=== PATIENT | female | born 1985 | race Caucasian/White ===

== ENCOUNTER 2016-08-24 22:45 | Inpatient (IN) | payer OTHER ==
--- OUTSIDE RECORDS SUMMARY | 2016-08-24 22:50 | XMS REPORT | Continuity of Care Document ---
:1985 Author Organization [facility] ([facility]) [place] [address] Phone [phone] Care Team Providers Name Role Phone Unavailable Primary Care Provider Unavailable Source Comments This disclosure is being made pursuant to the Care Everywhere program, applicable federal and state laws, and may not contain all informaitonavailable regarding this patient.[facility] ([facility]) Active Allergies and Adverse Reactions Not on File Current Medications Not on file Active Problems Not on file Social History Tobacco Use Types Packs/Day Years Used Date Never Assessed Plan of Care Health Maintenance Due Date Last Done Comments Hepatitis B Vaccine (1 of 3 - Primary Series) 1984 Tdap Vaccine 1995 Lipid Disorder Screening 2002 MMR Vaccine 2002 Td Vaccine 2002 Varicella Vaccine (1 of 2 - Adult - No Evidence of 2002 Immunity) Cervical Cancer Screening 2014 Influenza Vaccine: Seasonal (#1) 11/29/2015 Results from Last 3 Months Not on file
--- OUTSIDE RECORDS SUMMARY | 2016-08-24 23:02 | XMS REPORT | Continuity of Care Document ---
:1985 Author Organization [facility] ([facility]) [place] [address] Phone [phone] Care Team Providers Name Role Phone Unavailable Primary Care Provider Unavailable Source Comments This disclosure is being made pursuant to the Care Everywhere program, applicable federal and state laws, and may not contain all informaitonavailable regarding this patient.[facility] ([facility]) Active Allergies and Adverse Reactions Not on [...]
[2016-08-24] MEDS ORDERED: DEXTROSE 5%-LACTATED RINGERS 1,000 ML IV PRN (23:14)
[2016-08-24] MEDS ORDERED: RINGERS SOLUTION,LACTATED 1,000 ML IV ONE (23:14)
[2016-08-24] MEDS ORDERED: OXYTOCIN/DEXTROSE 5%-WATER 30 UNITS/500 ML BAG IV ONE (23:14)
[2016-08-24] MEDS ORDERED: LIDOCAINE HCL 50 ML VIAL PERI PRN (23:14)
[2016-08-25] MEDS ORDERED: BUPIVACAINE HCL/0.9 % NACL/PF 250 ML EP PRN (00:49)
[2016-08-25] MEDS ORDERED: ONDANSETRON HCL/PF 2 MG/ML VIAL IV PRN (00:49)
[2016-08-25] MEDS ORDERED: NALOXONE HCL 1 MG/1 ML SYRG IV PRN (00:49)
--- NOTE | 2016-08-25 01:21 | OR ---
Anesthesia Procedure Note - Anesthesia Procedure Note Date of Service: 08/25/16 Narrative: Vital Signs - Last Taken Temp 36.6 C 11/29/14 08:35 Pulse 85 08/25/16 00:54 Resp 18 08/25/16 00:54 BP 134/80 08/25/16 00:54 Pulse Ox 97 08/25/16 00:54 08/25/16 01:20 ANESTHESIA PROCEDURE NOTE Date of Procedure: 08/17/2016. Time of procedure: 49. Performed by: Joseluis Alexis CRNA Commercial Real Estate Attorney: None. Preprocedure diagnosis: Active labor. Post procedure diagnosis: Same. Procedure: Insertion of labor epidural. Indications: The patient is a 31 -year-old female in active labor requesting labor epidural for pain management. Findings: See below. Details of the procedure: The patient was placed in a sitting position. DuraPrep as well as Betadine swabs 3 was applied to the patient's back. Patient was then draped in a sterile fashion. Lidocaine 1% was infiltrated to the skin and subcutaneous tissues at the level of the L3 4 interspace. The epidural space was identified using a 18-gauge Tuohy needle with loss-of- resistance technique. Epidural catheter was inserted to a depth of 11 centimeters at skin. Negative test dose was elicited using 3 mL of 1.5% preservative-free lidocaine plus epinephrine 1 200,000. The epidural catheter was then taped and secured in place. EBL: Minimal. Fluids: N/A. Specimen: N/A. Post procedure condition: The patient tolerated the procedure well. No complications were noted. Thank you for this consultation. Joseluis Alexis CRNA
--- NOTE | 2016-08-25 07:51 | OR ---
Operative Report - Dictated Report Narrative: Spontaneous vaginal delivery of viable female at 0725 on 08/25/2016 in [place] position with Apgars 8 and 9, weighing 2928 g. [Cord clamping delayed approximately 1 minute] Placenta delivered [complete, intact, with three vessel cord] Estimated blood loss: [less than 50 ml] Lacerations: 3 cm second degree vaginal laceration repaired with 3-0 Vicryl Rapide History for MU Definition: * The number of deliveries resulting in a live the patient experienced prior to current hospitalization * The previous delivery of live twins or any live multiple gestation is considered one live event. *If primagravida or nulliparous is documented select zero for the number of previous live births. Live Events: 0
[2016-08-25] MEDS ORDERED: SENNOSIDES 8.6 MG TABLET PO PRN (07:52)
[2016-08-25] MEDS ORDERED: OXYTOCIN/DEXTROSE 5%-WATER 30 UNITS/500 ML BAG IV ONE (07:52)
[2016-08-25] MEDS ORDERED: ACETAMINOPHEN 500 MG TABLET PO PRN (07:52)
[2016-08-25] MEDS ORDERED: oxyCODONE HCL/ACETAMINOPHEN 1 TAB TABLET PO PRN (07:52)
[2016-08-25] MEDS ORDERED: CALCIUM CARBONATE 500 MG TAB.CHEW PO PRN (07:52)
[2016-08-25] MEDS ORDERED: BISACODYL 10 MG SUPP.RECT RC PRN (07:52)
[2016-08-25] MEDS ORDERED: BENZOCAINE/MENTHOL 81 SPRAY CAN TP PRN (07:52)
[2016-08-25] MEDS ORDERED: GLYCERIN/WITCH HAZEL LEAF 40 APPL BOX TP PRN (07:52)
[2016-08-25] MEDS ORDERED: HYDROCORTISONE 30 APPL TUBE TP PRN (07:52)
[2016-08-25] MEDS: IBUPROFEN 800 MG TABLET PO PRN ×3 (08:36→20:47)
[2016-08-25] MEDS: DOCUSATE SODIUM 100 MG CAPSULE PO SCH ×2 (09:03→20:47)
[2016-08-25] MEDS: CALCIUM CARBONATE/VITAMIN D3 1 TAB TABLET PO SCH (09:03)
[2016-08-25] MEDS: FERROUS SULFATE 325 MG TABLET PO SCH (09:04)
[2016-08-25] MEDS: PRENATAL VIT#96/FERROUS FUM/FA 1 TAB TABLET PO SCH (09:04)
[2016-08-26] MEDS: oxyCODONE HCL/ACETAMINOPHEN 1 TAB TABLET PO PRN ×3 (00:21→21:46)
[2016-08-26] MEDS: CALCIUM CARBONATE/VITAMIN D3 1 TAB TABLET PO SCH (10:39)
[2016-08-26] MEDS: FERROUS SULFATE 325 MG TABLET PO SCH (10:39)
[2016-08-26] MEDS: DOCUSATE SODIUM 100 MG CAPSULE PO SCH ×2 (10:39→21:47)
[2016-08-26] MEDS: PRENATAL VIT#96/FERROUS FUM/FA 1 TAB TABLET PO SCH (10:39)
--- NOTE | 2016-08-26 11:06 | PN ---
Subjective - Date and Time Seen Date: 08/26/16 Time: 11:05 Objective - Vitals Vitals: Last Vital Signs Temp 36.0 C L 08/26/16 07:21 Pulse 76 08/26/16 07:21 Resp 18 08/26/16 07:21 BP 135/76 08/26/16 07:21 Pulse Ox 99 08/26/16 08:04 Patient denies complaints. Lochia wnl Abdomen - soft, nontender Uterus - firm, at umbilicus - 1 No calf tenderness Impression: day #1 - s/p spontaneous vaginal delivery. Plan: Continue routine care Cauti Physician Documentation - Urinary Catheter Management Urethral (Paulino) Date of Insertion: 08/25/16 Time of Insertion: 04:00
[2016-08-26] MEDS: IBUPROFEN 800 MG TABLET PO PRN (18:04)
[2016-08-27 06:51] VITALS: BP 127/72
--- NOTE | 2016-08-27 08:39 | PN ---
Subjective - Date and Time Seen Date: 08/27/16 Time: 08:38 Objective - Vitals Vitals: Last Vital Signs Temp 36.8 C 08/27/16 06:48 Pulse 70 08/27/16 06:48 Resp 18 08/27/16 06:48 BP 127/72 08/27/16 06:48 Pulse Ox 98 08/27/16 06:48 Patient denies complaints. Lochia wnl Abdomen - soft, nontender Uterus - firm, at umbilicus - 2 No calf tenderness Impression: day #2 - s/p spontaneous vaginal delivery. Plan: Routine discharge instructions Cauti Physician Documentation - Urinary Catheter Management Urethral (Paulino) Date of Insertion: 08/25/16 Time of Insertion: 04:00
[2016-08-27] MEDS: IBUPROFEN 800 MG TABLET PO PRN (15:31)
[2016-08-27] MEDS: oxyCODONE HCL/ACETAMINOPHEN 1 TAB TABLET PO PRN (15:31)
== END 2016-08-27 15:45 | disposition home or self-care (01) | DRG 775 ==
LOC: OBCLINIC 22:45 → OB 22:58
PROVIDERS: ADMIT Obstetrics & Gynecology; ATTEND Obstetrics & Gynecology
PROC: 10E0XZZ Delivery of Products of Conception, External Approach (ICD-10-PCS; principal; 2016-08-25)
PROC: 0KQM0ZZ Repair Perineum Muscle, Open Approach (ICD-10-PCS; 2016-08-25)
PROC: 4A1HXCZ Monitoring of Products of Conception, Cardiac Rate, External Approach (ICD-10-PCS; 2016-08-25)
PROC: 3E0S3CZ (ICD-10-PCS; 2016-08-25)
DX: O99.02 Anemia complicating childbirth (principal); D64.9 Anemia, unspecified; O70.1 Second degree perineal laceration during delivery; O69.81X0 Labor and delivery complicated by cord around neck, without compression, not applicable or unspecified; O99.214 Obesity complicating childbirth; E66.01 Morbid (severe) obesity due to excess calories; Z68.38 Body mass index [BMI] 38.0-38.9, adult; Z3A.38 38 weeks gestation of pregnancy; Z37.0 Single live birth

== ENCOUNTER 2020-06-03 00:01 | Inpatient (IN) ==
[2020-06-03] MEDS ORDERED: OXYTOCIN/0.9 % SODIUM CHLORIDE 30 UNITS/500 ML BAG IV ONE (18:01)
[2020-06-03] MEDS ORDERED: MISOPROSTOL 100 MCG TABLET VG PRN (18:01)
[2020-06-03] MEDS ORDERED: RINGER'S SOLUTION,LACTATED 1,000 ML IV ONE (18:01)
[2020-06-03] MEDS ORDERED: DEXTROSE 5%-LACTATED RINGERS 1,000 ML IV PRN (18:01)
[2020-06-03] MEDS ORDERED: ONDANSETRON 4 MG TAB.RAPDIS PO PRN (18:01)
--- NOTE | 2020-06-03 19:43 | HP ---
Chief Complaint - Chief Complaint Date of Service: 06/03/20 Time of Service: 19:33 Chief Complaint: Induction of labor for CHTN History of Present Illness: 35 yo at 39w0d admitted for induction of labor due to CHTN. This complicated by anemia, AMA, anxiety/depression, CHTN, and morbid obesity. 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) Major depressive disorder (Chronic) Generalized anxiety disorder (Chronic) Anxiety Onset Date: ~2018 Depression Onset Date: ~2018 Allergic rhinitis (Resolved) Bronchitis (Resolved) Screening for depression (Resolved) PHQ 9: 11 OLIVIA 7: 13 Sinusitis, acute (Resolved) Tension headache (Resolved) Low back pain Onset Date: 10/30/13 Missed Onset Date: 10/21/15 Surgical History: Surgical History (Last Reviewed 06/03/20 @ 19:36 by Devan Allen DO) History of liver biopsy Onset Date: 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 Rivers left small finger Family History: Family History (Last Reviewed 06/03/20 @ 19:36 by Devan Allen DO) Mother Alive and well Father Hypertension Grandmother Diabetes CVA (cerebral vascular accident) Social History: (Last Reviewed 06/03/20 @ 19:36 by Devan Allen DO) Social History: adopted: No foster care: No snf: No Marital status: Single lives independently: Yes household members: children number of children: 1 caregiver/support person: No current occupational status: employed Highest level of school completed/degree received: Associate degree: occupat Sexually Active: No Service: No Tobacco: Smoking Status: Never smoker passive smoking exposure: No second hand exposure: No Alcohol: alcohol intake: current alcohol intake frequency: holiday/special occasion details: none with Substance Use: substance use type: does not use Dietary Habits: caffeine: Yes caffeine comment: 1/day Type: coffee Exercise: Physical activity type: none Review Of Systems (GEN) - Review of Systems Generalized/Overall Review: Present: No Symptoms Reported EENTM: Present: No Symptoms Reported Respiratory: Present: No Symptoms Reported Cardiac: Present: No Symptoms Reported Abdominal: Present: No Symptoms Reported Genitourinary: Present: No Symptoms Reported Musculoskeletal: Present: No Symptoms Reported Neurological: Present: No Symptoms Reported Skin: Present: No Symptoms Reported Endocrine: Present: No Symptoms Reported Immunizations: IMMUNIZATION HX Immunizations Up to Date Yes History of Influenza Vaccine Yes Hx Pneumococcal Vaccination No Allergies/Adverse Reactions: Allergies Allergy/AdvReac Type Severity Reaction Status Date / Time No Known Allergies Allergy Verified 06/03/20 18:15 Home Medications: HOME MEDICATIONS ascorbic acid (vitamin C) 500 mg capsule 1,000 mg PO DAILY 10/29/19 [Last Taken 06/03/20 08:00] fluoxetine 20 mg capsule 20 mg PO DAILY #30 cap 11/03/19 [Last Taken 06/03/20 08:00] aspirin 81 mg tablet,delayed release 81 mg PO DAILY 02/26/20 [Last Taken 06/03/20 08:00] magnesium oxide 800 mg PO DAILY 02/26/20 [Last Taken Unknown] ferrous sulfate 325 mg (65 mg iron) tablet 325 mg PO BID tab 03/16/20 [Last Taken 06/03/20 08:00] labetalol 100 mg tablet 25 mg PO BID tab 04/15/20 [Last Taken 06/03/20 08:00] Vits96/Iron Fum/Folic [ S] 1 tab PO DAILY 05/24/20 [Last Taken 06/03/20 08:00] Exam - Exam Vital Signs: Vital Signs - Last Taken Temp 36.7 C 06/03/20 19:12 Pulse 77 06/03/20 19:12 Resp 20 06/03/20 19:12 BP 121/61 06/03/20 19:12 Pulse Ox 97 06/03/20 19:12 Constitutional: Present: Alert, Oriented x3, Cooperative ENT Exam: Present: hearing grossly normal Neck: Present: non-tender, supple. Absent: thyromegaly Back Exam: Present: no CVA tenderness Breasts: Present: Exam deferred Respiratory: Present: lungs clear, no respiratory distress Cardiovascular/Chest: Present: normal peripheral pulses, regular rate, rhythm Abdomen: Present: soft, nontender, no rebound tenderness, other - Gravid /Rectal: Present: Other - Cervix - 05/24/- Extremity: Present: no pedal edema, no calf tenderness Skin Exam: Present: normal color, warm/dry, no cyanosis Lymphatic: Present: no adenopathy Neurologic: Present: alert, normal mood/affect, oriented x 3 Appearance: Present: appropriate appearance, appropriate insight Eye contact: Present: cooperative, good eye contact Thoughts: Present: normal thought pattern, normal mood /affect Assessment/Plan - Assessment/Plan (1) Hypertension Assessment: Admit for Cytotec induction of labor. Epidural and pitocin PRN. Problem: Chronic Qualifiers: Hypertension type: essential hypertension (2) Advanced maternal age affecting , antepartum Problem: Chronic (3) Major depressive disorder Problem: Chronic Qualifiers: Major depression recurrence: recurrent Active/Remission status: in remission of unspecified degree Qualified Code(s): F33.40 - Major depressive disorder, recurrent, in remission, unspecified (4) Generalized anxiety disorder Problem: Chronic (5) BMI 37.0-37.9, adult Problem: Chronic
[2020-06-03] MEDS ORDERED: LABETALOL HCL 100 MG TABLET PO SCH (21:00)
[2020-06-04] MEDS ORDERED: NALOXONE HCL 1 MG/1 ML SYRG IV PRN (02:33)
[2020-06-04] MEDS ORDERED: ONDANSETRON HCL/PF 2 MG/ML VIAL IV PRN (02:33)
[2020-06-04] MEDS ORDERED: BUPIVACAINE HCL/0.9 % NACL/PF 250 ML EP PRN (02:33)
[2020-06-04] MEDS ORDERED: fentaNYL CITRATE/PF 50 MCG/ML AMPUL IT SCH (02:45)
--- NOTE | 2020-06-04 03:09 | ANES ---
Anesthesia Pre Procedure Eval Vitals/Labs: Last Vital Signs Temp 36.6 C 06/04/20 02:32 Pulse 71 06/04/20 02:32 Resp 22 H 06/04/20 02:32 BP 127/63 06/04/20 02:32 Pulse Ox 98 06/04/20 02:32 HOME MEDICATIONS ascorbic acid (vitamin C) 500 mg capsule 1,000 mg PO DAILY 10/29/19 [Last Taken 06/03/20 08:00] fluoxetine 20 mg capsule 20 mg PO DAILY #30 cap 11/03/19 [Last Taken 06/03/20 08:00] aspirin 81 mg tablet,delayed release 81 mg PO DAILY 02/26/20 [Last Taken 06/03/20 08:00] magnesium oxide 800 mg PO DAILY 02/26/20 [Last Taken Unknown] ferrous sulfate 325 mg (65 mg iron) tablet 325 mg PO BID tab 03/16/20 [Last Taken 06/03/20 08:00] labetalol 100 mg tablet 25 mg PO BID tab 04/15/20 [Last Taken 06/03/20 08:00] Vits96/Iron Fum/Folic [ S] 1 tab PO DAILY 05/24/20 [Last Taken 06/03/20 08:00] Allergies/Adverse Reactions: Allergies Allergy/AdvReac Type Severity Reaction Status Date / Time No Known Allergies Allergy Verified 06/03/20 18:15 - Planned Procedure Planned Procedure: Medical Induction Medication List Reviewed:: Yes Allergies Verified: Yes Medical History (Last Reviewed 06/04/20 @ 03:07 by Bg Perez CRNA) Anemia (Chronic) Onset Date: 06/19/16 03/16/20 BMI 37.0-37.9, adult (Chronic) Advanced maternal age affecting , antepartum (Chronic) Hypertension (Chronic) 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) Major depressive disorder (Chronic) Generalized anxiety disorder (Chronic) Anxiety Onset Date: ~2018 Depression Onset Date: ~2018 Allergic rhinitis (Resolved) Bronchitis (Resolved) Screening for depression (Resolved) PHQ 9: 11 OLIVIA 7: 13 Sinusitis, acute (Resolved) Tension headache (Resolved) Low back pain Onset Date: 10/30/13 Missed Onset Date: 10/21/15 Surgical History (Last Reviewed 06/04/20 @ 03:07 by Bg Perez CRNA) History of liver biopsy Onset Date: 07/03/17 Sonja- Hyalinized caseasting granuloma H/O adenoidectomy Onset Date: 1993 History of tonsillectomy Onset Date: 1993 Hx laparoscopic cholecystectomy Onset Date: 07/03/17 finger surgery Onset Date: 12/22/02 Dr. Rivers left small finger Family History (Last Reviewed 06/04/20 @ 03:07 by Bg Perez CRNA) Mother Alive and well Father Hypertension Grandmother Diabetes CVA (cerebral vascular accident) - Family Anesthesia History Family History:: no untoward family reactions to anesthesia, no familial bleeding tendencies, no family history of clotting disorders, no family history of premature - Airway/Neck/Teeth Within Normal Limits:: Yes Teeth Condition: intact Neck Exam: full range of motion Mallampatti Score: 2 Thyromental (T-M) distance: > 6 cm Mandibulo Hyoid distance: > 3 cm - Respiratory Respiratory Physical: lungs clear Smoking Status: Never smoker Sleep Apnea currently treated: No Sleep Apnea by current assessment: No - Cardiovascular Cardiac History: hypertension Tolerate Activity: Fair Heart Sounds: S1 & S2, Regular - Gastrointestinal NPO since: 2399 - Anesthesia Assessment and Plan ASA Class: PS, II, E Anesthesia Type Plan: Epidural - CSE for labor analgesia
--- NOTE | 2020-06-04 03:33 | ANES ---
Post Anesthesia Discharge - Transfer of Care Transfer of Care handoff given to nurse: Yes - Discharge from PACU Discharge from PACU when meets criteria: Yes - Comfortable post CSE.
--- NOTE | 2020-06-04 03:34 | ANES ---
Anesthesia Procedure Note Procedure Note: ANESTHESIA PROCEDURE NOTE Date of Procedure: 06/04/2020 Time of procedure: 3:10 AM. Performed by: THIERRY Sol CRNA, MSN Tire Repairman: Mauricio Ortiz RN. Preprocedure diagnosis: Active labor, labor pain. Post procedure diagnosis: Same. Procedure:Epidural for labor analgesia L3-4. Indications: Labor pain. Findings: See below. Details of the procedure: The patient was placed on the side of the bed in sitting positionand prepped with DuraPrep then draped in a sterile fashion. Lidocaine 1% was infiltrated to the skin and subcutaneous tissues at the level of the L3-4 interspace. An 18-gauge Touhy needle was used to approach the epidural space with loss of resistance technique. Once loss of resistance was achieved a 27-gauge spinal needle was passed through the epidural needle and CSF was contacted. After CSF returned, 20 mcg of fentanyl was injected in the spinal needle was removed the epidural catheter was then threaded approximately 4 cm in the epidural needle was removed. The catheter was taped in place and after careful aspiration 3 mL of 1.5% lidocaine with 1-200,000 epinephrine was injected without change in maternal heart rate or sensorium. . EBL: Minimal. Fluids: N/A. Specimen: N/A. Post procedure condition: The patient tolerated the procedure well with good relief. No complications were noted. Thank you for this consultation. Bg Perez CRNA, THIERRY, MSN
--- NOTE | 2020-06-04 03:43 | ANES ---
Post Anesthesia Assessment - Vital Signs Vitals: Last Vital Signs Temp 36.6 C 06/04/20 02:32 Pulse 71 06/04/20 02:32 Resp 22 H 06/04/20 02:32 BP 127/63 06/04/20 02:32 Pulse Ox 98 06/04/20 02:32 Airway Patency: Normal - Mental Status Level Of Consciousness: Awake, Alert, Appropriate - Pain Level Pain Score: 0 - N/V Assessment Nausea/Vomiting Presence: None Dehydration:: No
[2020-06-04] MEDS ORDERED: BISACODYL 10 MG SUPP.RECT RC PRN (07:00)
[2020-06-04] MEDS ORDERED: OXYTOCIN/0.9 % SODIUM CHLORIDE 30 UNITS/500 ML BAG IV ONE (07:00)
[2020-06-04] MEDS ORDERED: HYDROCORTISONE 30 APPL TUBE TP PRN (07:00)
[2020-06-04] MEDS ORDERED: BENZOCAINE/MENTHOL 81 SPRAY CAN TP PRN (07:00)
[2020-06-04] MEDS ORDERED: SENNOSIDES 8.6 MG TABLET PO PRN (07:00)
[2020-06-04] MEDS ORDERED: GLYCERIN/WITCH HAZEL LEAF 40 APPL BOX TP PRN (07:00)
--- NOTE | 2020-06-04 07:06 | OR ---
Operative Report - Dictated Report Narrative: Spontaneous vaginal delivery of a 39-week 1 day old vigorously crying viable female at 0641 on 06/04/2020 with Apgars 9 and 9, weighing 2944 g in [place] position with tight nuchal cord x1. Cord clamping delayed approximately 1 minute Placenta delivered complete, intact, with three vessel cord Estimated blood loss: Less than 50 ml Anesthesia: Epidural Lacerations: Half centimeter first-degree vaginal posterior fourchette laceration with no repair needed
[2020-06-04] MEDS: DOCUSATE SODIUM 100 MG CAPSULE PO SCH ×2 (09:53→20:41)
[2020-06-04] MEDS: PRENATAL VITS96/IRON FUM/FOLIC 1 TAB TABLET PO SCH (09:53)
[2020-06-04] MEDS: IBUPROFEN 800 MG TABLET PO PRN ×2 (09:53→17:48)
[2020-06-04] MEDS: FERROUS SULFATE 325 MG TABLET PO SCH ×2 (09:53→20:41)
[2020-06-04] MEDS: oxyCODONE HCL/ACETAMINOPHEN 1 TAB TABLET PO PRN ×4 (09:53→22:29)
[2020-06-04] MEDS: FLUoxetine HCL 20 MG CAPSULE PO SCH (10:01)
[2020-06-04] MEDS: LABETALOL HCL 100 MG TABLET PO SCH ×2 (10:04→20:41)
[2020-06-04] MEDS: MAGNESIUM OXIDE 400 MG TABLET PO SCH (10:07)
[2020-06-04] MEDS: ASCORBIC ACID 500 MG TABLET PO SCH (10:27)
--- NOTE | 2020-06-04 16:57 | PN ---
Progess Note - Interim Date: 06/04/20 Time: 16:57 History for MU History for MU Definition: * The number of deliveries resulting in a live the patient experienced prior to current hospitalization * The previous delivery of live twins or any live multiple gestation is considered one live event. *If primagravida or nulliparous is documented select zero for the number of previous live births. Live Events: Live Events: 1
[2020-06-04] MEDS ORDERED: PETROLATUM,WHITE 49 APPL JAR TP PRN (20:37)
[2020-06-05] MEDS: oxyCODONE HCL/ACETAMINOPHEN 1 TAB TABLET PO PRN ×5 (02:18→19:12)
[2020-06-05] MEDS: IBUPROFEN 800 MG TABLET PO PRN ×3 (02:18→19:13)
[2020-06-05] MEDS: PRENATAL VITS96/IRON FUM/FOLIC 1 TAB TABLET PO SCH ×2 (07:50→11:32)
[2020-06-05] MEDS: DOCUSATE SODIUM 100 MG CAPSULE PO SCH ×3 (07:50→20:22)
[2020-06-05] MEDS: FLUoxetine HCL 20 MG CAPSULE PO SCH ×2 (07:50→11:32)
[2020-06-05] MEDS: FERROUS SULFATE 325 MG TABLET PO SCH ×3 (07:50→20:22)
[2020-06-05] MEDS: ASCORBIC ACID 500 MG TABLET PO SCH ×2 (07:51→11:32)
[2020-06-05] MEDS: LABETALOL HCL 100 MG TABLET PO SCH ×2 (08:05→20:22)
--- NOTE | 2020-06-05 10:06 | PN ---
Subjective - Date and Time Seen Date: 06/05/20 Time: 10:05 Objective - Vitals Vitals: Last Vital Signs Temp 36.6 C 06/05/20 08:17 Pulse 74 06/05/20 08:17 Resp 18 06/05/20 08:17 BP 116/71 06/05/20 08:17 Pulse Ox 100 06/05/20 08:17 Patient denies complaints. Patient had a nosebleed yesterday which resolved. Breast-feeding. Lochia wnl abdomen - soft, nontender Uterus -firm, at umbilicus - 1 No calf tenderness Impression: day #1 - s/p spontaneous vaginal delivery. Chronic hypertension-stable. Nosebleed-resolved. Plan: Continue routine care Cauti Physician Documentation - Urinary Catheter Management Urethral (Paulino) Date of Insertion: 06/04/20 Time of Insertion: 03:45 Date of Removal: 06/04/20 Time of Removal: 06:30 Assessment/Plan - Problems/Diagnosis (1) Hypertension Problem: Chronic Qualifiers: Hypertension type: essential hypertension (2) Advanced maternal age affecting , antepartum Problem: Chronic (3) Major depressive disorder Problem: Chronic Qualifiers: Major depression recurrence: recurrent Active/Remission status: in remission of unspecified degree Qualified Code(s): F33.40 - Major depressive disorder, recurrent, in remission, unspecified (4) Generalized anxiety disorder Problem: Chronic (5) BMI 37.0-37.9, adult Problem: Chronic
[2020-06-05] MEDS: MAGNESIUM OXIDE 400 MG TABLET PO SCH (11:32)
[2020-06-06] MEDS: oxyCODONE HCL/ACETAMINOPHEN 1 TAB TABLET PO PRN ×2 (04:52→12:46)
[2020-06-06] MEDS: IBUPROFEN 800 MG TABLET PO PRN ×2 (04:52→12:46)
[2020-06-06] MEDS: ASCORBIC ACID 500 MG TABLET PO SCH (09:05)
[2020-06-06] MEDS: PRENATAL VITS96/IRON FUM/FOLIC 1 TAB TABLET PO SCH (09:05)
[2020-06-06] MEDS: DOCUSATE SODIUM 100 MG CAPSULE PO SCH (09:05)
[2020-06-06] MEDS: FERROUS SULFATE 325 MG TABLET PO SCH (09:05)
[2020-06-06] MEDS: FLUoxetine HCL 20 MG CAPSULE PO SCH (09:06)
[2020-06-06] MEDS: LABETALOL HCL 100 MG TABLET PO SCH (09:06)
--- NOTE | 2020-06-06 11:54 | PN ---
Subjective - Date and Time Seen Date: 06/06/20 Time: 11:37 Objective - Vitals Vitals: Last Vital Signs Temp 36.2 C 06/06/20 07:55 Pulse 68 06/06/20 09:06 Resp 20 06/06/20 07:55 BP 141/70 H 06/06/20 09:06 Pulse Ox 98 06/06/20 07:55 Patient denies complaints. Breast-feeding Lochia wnl abdomen - soft, nontender Uterus -firm, at umbilicus - 2 No calf tenderness Impression: day #2 - s/p spontaneous vaginal delivery. Chronic hypertension-stable. Anxiety and depression-stable. Plan: Routine discharge instructions. Continue to monitor blood pressures twice a day until follow-up appointment in 3 to 4 weeks. Call for elevated blood pressures-systolic blood pressure greater than 160 or diastolic blood pressure greater than 110. Cauti Physician Documentation - Urinary Catheter Management Urethral (Paulino) Date of Insertion: 06/04/20 Time of Insertion: 03:45 Date of Removal: 06/04/20 Time of Removal: 06:30 Assessment/Plan - Problems/Diagnosis (1) Hypertension Problem: Chronic Qualifiers: Hypertension type: essential hypertension (2) Advanced maternal age affecting , antepartum Problem: Chronic (3) Major depressive disorder Problem: Chronic Qualifiers: Major depression recurrence: recurrent Active/Remission status: in remission of unspecified degree Qualified Code(s): F33.40 - Major depressive disorder, recurrent, in remission, unspecified (4) Generalized anxiety disorder Problem: Chronic (5) BMI 37.0-37.9, adult Problem: Chronic
--- NOTE | 2020-06-06 12:00 | DS ---
OB Discharge Summary (1) Hypertension Status: Chronic Qualifiers: Hypertension type: essential hypertension Qualified Code(s): I10 - Essential (primary) hypertension (2) Advanced maternal age affecting , antepartum Status: Chronic (3) Major depressive disorder Status: Chronic Qualifiers: Major depression recurrence: recurrent Active/Remission status: in remission of unspecified degree Qualified Code(s): F33.40 - Major depressive disorder, recurrent, in remission, unspecified (4) Generalized anxiety disorder Status: Chronic (5) BMI 37.0-37.9, adult Status: Chronic Delivery Date: 06/04/20 Delivery Time: 06:41 :: 3 Para:: 2 Gestational weeks:: 39 Gestational days:: 1 Intrapartum Procedures: Spontaneous Vaginal Delivery, Anesthesia - Epidural /OP Complications: No Complications Discharge Diagnosis: Term -Delivered, Rubella Immune - Discharge Information Date of Discharge: 06/06/20 Hospital Course: 35-year-old 3 now para 2 admitted at 39 weeks for induction of labor due to chronic hypertension. Delivery and course were uncomplicated. Discharge Location: Home Disposition: Home self-care Condition: Good Activity on Discharge:: Activity as tolerated, Pelvic Rest Discharge Diet: General/regular food Additional Patient Instructions (free text): Please call [facility] to schedule your 4 week post follow up appointment. Chiki's follow up appointment is scheduled with Dr. Cooper on Monday June 08, 2020 at 10:30 a.m. Please call [facility] with any problems or concerns. Prescriptions (Any new or edited meds): Ibuprofen [Motrin] 200 - 800 mg PO Q6H PRN #100 tab PRN Reason: Pain Complete Home Medications List: Complete Home Medication List: ascorbic acid (vitamin C) 500 mg capsule 1,000 mg PO DAILY 10/29/19 fluoxetine 20 mg capsule 20 mg PO DAILY #30 cap 11/03/19 magnesium oxide 800 mg PO DAILY 02/26/20 ferrous sulfate 325 mg (65 mg iron) tablet 325 mg PO BID tab 03/16/20 labetalol 100 mg tablet 25 mg PO BID tab 04/15/20 Vits96/Iron Fum/Folic [ S] 1 tab PO DAILY 05/24/20 Ibuprofen [Motrin] 200 - 800 mg PO Q6H PRN #100 tab 06/06/20 - Plan Discharge to:: Home Follow up in office in:: 3-4 weeks - [place] Information Weight (Grams): 2,944 Sex: Female Score 1 min: 9 Score 5 min: 9 Complications: Other Other Complications: tight nuchal cord X1
[2020-06-06 15:12] VITALS: BP 130/72
[2020-06-06] MEDS: MAGNESIUM OXIDE 400 MG TABLET PO SCH (15:24)
--- NOTE | 2020-06-10 14:20 | ANES ---
Anesthesia Procedure Note Procedure Note: 06/10/2020 1330 p.m. I was consulted by Dr. Allen to evaluate a potential post dural puncture headache. Ms. Love is 1 week post delivery and has had a headache since she was discharged to home. On interview Ms. Love relates that she has a left sided headache radiating through the distribution of the left orbital area to the left occiput and into the neck. She also has a numbness in the left arm at times which she believes may or may not be associated with the headache. Her headache gets better when she lays down on the left side, but it does not go away completely. After eliciting the nature and history of the headaches I indicated to Ms. Love that it was highly unlikely her symptoms were from a post dural puncture headache. First, it is unilateral in nature, secondly it does not completely go away when she lays down and finally it does not appear to interfere with her activities of daily living as she was observed walking in with no balance or pain issues that would inhibit her ambulation while carrying her in a carrier. Regarding her arm, that would be more indicative of a potential cervical vertebrae issue. I also indicated that considering her symptoms a blood patch would be a risk with no expected benefit. While Ms. Love was still present I discussed the issue with Dr. Allen and he asked that Ms. Love go to the Radiology waiting area as he would inquire as to the potential for a CT of the head and or neck. After discussions with the patient and Dr. Allen he I escorted Ms. Love to the radiology waiting area as Dr. Allen called radiology for their input.
== END 2020-06-06 14:00 | disposition home or self-care (01) | DRG 806 ==
LOC: OB 17:50
PROVIDERS: ADMIT Obstetrics & Gynecology; ATTEND Obstetrics & Gynecology